=== PATIENT | female | born 1935 | race Caucasian/White ===

== ENCOUNTER 2017-04-27 16:50 | Emergency (ER) | payer MEDICARE, OTHER ==
[~2017-04-27] VITALS: Ht 162.6 cm; Wt 75.0 kg
[~2017-04-27 16:50] MED LIST: AMLO1CAP2 PO; AMLO2.5T2 PO; ASPI-1264 PO; CELE200C PO; ESOM40CA30 PO; HYDR-565 PO; IPRA4AER IH; SERT50TA PO
[2017-04-27 17:46] LABS: BASOPHILS % (AUTO) 0.2 % (0-1); EOSINOPHILS # (AUTO) 0.1 X10'3 (0-0.9); EOSINOPHILS % (AUTO) 1.4 % (0-6); HEMATOCRIT 38.3 % (35.0-45.0); LYMPHOCYTES # (AUTO) 1.7 X10'3 (1.1-4.8); LYMPHOCYTES % (AUTO) 17.4 % (21-51); MEAN CORPUSCULAR HEMOGLOBIN 33.1 PG (27.0-31.0); MEAN CORPUSCULAR VOLUME 97.3 FL (78-98); MEAN PLATELET VOLUME 9.3 FL (7.4-10.4); MONOCYTES # (AUTO) 0.7 X10'3 (0-0.9); MONOCYTES % (AUTO) 7.7 % (2-12); NEUTROPHILS # (AUTO) 7.1 X10'3 (1.8-7.7); NEUTROPHILS % (AUTO) 73.3 % (42-75); PLATELET COUNT 189 X10'3 (140-440); RED BLOOD COUNT 3.94 X10'6 (4.20-5.60); RED CELL DISTRIBUTION WIDTH 14.1 % (11.5-14.5); WHITE BLOOD COUNT 9.7 X10'3 (4.5-11.0)
[2017-04-27 18:04] LABS: ALANINE AMINOTRANSFERASE 27 U/L (12-78); ALBUMIN 3.6 G/DL (3.4-5.0); ALBUMIN/GLOBULIN RATIO 0.9 (1.1-1.5); ALKALINE PHOSPHATASE 69 IU/L (46-116); ANION GAP 8 (8-16); ASPARTATE AMINO TRANSFERASE 20 U/L (10-37); BILIRUBIN,TOTAL 0.4 MG/DL (0.1-1.0); BLOOD UREA NITROGEN 12 MG/DL (7-18); BUN/CREATININE RATIO 12.5 (6.6-38.0); CALCIUM 8.8 MG/DL (8.5-10.1); CHLORIDE 105 MMOL/L (99-107); CREATININE 0.96 MG/DL (0.40-0.90); GLUCOSE 194 MG/DL (70-104); POTASSIUM 3.4 MMOL/L (3.5-5.1); SODIUM 143 MMOL/L (135-145); TOTAL CARBON DIOXIDE 29.7 MMOL/L (24-32); TOTAL PROTEIN 7.4 G/DL (6.4-8.2); eGFR 56 ML/MIN
[2017-04-27 18:39] VITALS: BP 135/65
== END 2017-04-27 18:40 | disposition home or self-care (01) ==
LOC: ER 16:50
DX: R42 Dizziness and giddiness (principal); I10 Essential (primary) hypertension; J44.9 Chronic obstructive pulmonary disease, unspecified; G89.29 Other chronic pain; Z90.49 Acquired absence of other specified parts of digestive tract; Z88.5 Allergy status to narcotic agent; Z79.82 Long term (current) use of aspirin
CPT/HCPCS: 36415; 71045; 80053; 85025; 93005; 99285

== ENCOUNTER 2017-05-08 12:54 | Inpatient (IN) | payer MEDICARE, OTHER ==
[~2017-05-08] VITALS: Ht 162.6 cm; Wt 77.3 kg
[2017-05-08] MEDS ORDERED: methylPREDNISolone sod succ 125mg/2ml vial IV ONE (13:05)
[2017-05-08] MEDS ORDERED: levoFLOXACIN-Levaquin 750MG/D5 150 ML IV ONE (13:05)
[2017-05-08] MEDS ORDERED: ipratropium/albuterol 3ml nebule NEB ONE (13:05)
[2017-05-08] MEDS ORDERED: normal saline 1000ML IV soln IVB ONE ×2 (13:05→16:35)
[2017-05-08] MEDS ORDERED: magnesium 2GM in 50ml NS 50 ML IV ONE (13:05)
[2017-05-08] MEDS ORDERED: benzonatate 100mg capsule PO ONE (13:10)
[2017-05-08 13:37] LABS: BASOPHILS % (AUTO) 0.2 % (0-1); EOSINOPHILS # (AUTO) 0.2 X10'3 (0-0.9); EOSINOPHILS % (AUTO) 3.6 % (0-6); HEMATOCRIT 36.3 % (35.0-45.0); HEMOGLOBIN 12.4 g/dl (12.0-16.0); LYMPHOCYTES # (AUTO) 1.5 X10'3 (1.1-4.8); MEAN CORPUSCULAR HEMOGLOBIN 33.6 PG (27.0-31.0); MEAN CORPUSCULAR HGB CONC 34.1 % (33.0-36.5); MEAN CORPUSCULAR VOLUME 98.5 FL (78-98); MEAN PLATELET VOLUME 8.6 FL (7.4-10.4); MONOCYTES # (AUTO) 0.7 X10'3 (0-0.9); MONOCYTES % (AUTO) 11.4 % (2-12); NEUTROPHILS # (AUTO) 3.5 X10'3 (1.8-7.7); NEUTROPHILS % (AUTO) 58.8 % (42-75); PLATELET COUNT 162 X10'3 (140-440); RED BLOOD COUNT 3.68 X10'6 (4.20-5.60); RED CELL DISTRIBUTION WIDTH 14.8 % (11.5-14.5); WHITE BLOOD COUNT 5.9 X10'3 (4.5-11.0)
[2017-05-08 13:53] LABS: INR 1.1 INR; PARTIAL THROMBOPLASTIN TIME 27 SECONDS (22-32); PROTHROMBIN TIME 11.5 SECONDS (9.0-12.0)
[2017-05-08 14:05] LABS: ALANINE AMINOTRANSFERASE 23 U/L (12-78); ALBUMIN 3.3 G/DL (3.4-5.0); ALBUMIN/GLOBULIN RATIO 0.8 (1.1-1.5); ALKALINE PHOSPHATASE 60 IU/L (46-116); ANION GAP 10 (8-16); ASPARTATE AMINO TRANSFERASE 19 U/L (10-37); BILIRUBIN,TOTAL 0.5 MG/DL (0.1-1.0); BLOOD UREA NITROGEN 11 MG/DL (7-18); BUN/CREATININE RATIO 12.2 (6.6-38.0); CALCIUM 8.6 MG/DL (8.5-10.1); CHLORIDE 104 MMOL/L (99-107); GLUCOSE 185 MG/DL (70-104); POTASSIUM 3.6 MMOL/L (3.5-5.1); SODIUM 143 MMOL/L (135-145); TOTAL CARBON DIOXIDE 28.9 MMOL/L (24-32); TOTAL PROTEIN 7.3 G/DL (6.4-8.2); eGFR 60 ML/MIN
[2017-05-08] MEDS ORDERED: albuterol 2.5 MG/3 ML nebule NEB ONE (14:25)
[2017-05-08] MEDS ORDERED: ATOR40TA PO (15:12)
[2017-05-08 16:01] LABS: CLARITY,URINE CLEAR (Clear); COLOR,URINE STRAW (Yellow); GLUCOSE, URINE NEGATIVE (Neg); KETONES,URINE NEGATIVE (Neg); LEUKOCYTE ESTERASE ,URINE NEGATIVE (Neg); NITRITES, URINE NEGATIVE (Neg); OCCULT BLOOD,URINE NEGATIVE (Neg); PH,URINE 5.5 (4.8-8.0); PROTEIN,URINE NEGATIVE (Neg); UROBILINOGEN,URINE 0.2 E.U/dL (0.2-1.0)
[2017-05-08 16:02] LABS: UA COLLECTION TYPE CLN CATCH MIDSTREAM
[2017-05-08] MEDS: sertraline 50mg tablet PO SCH (21:51)
[2017-05-08] MEDS ORDERED: HYDROcodone/acetaminophen 10/325mg tab PO PRN (22:20)
[2017-05-08] MEDS: HYDROcodone/acetaminophen 5mg/325mg tablet PO PRN ×2 (22:36→23:30)
[2017-05-09] MEDS ORDERED: benzonatate 100mg capsule PO ONE ×2 (01:30→12:30)
[2017-05-09] MEDS ORDERED: methylPREDNISolone sod succ 125mg/2ml vial IV ONE (01:30)
[2017-05-09] MEDS: lisinopril 20mg tablet PO SCH (07:42)
[2017-05-09] MEDS: atorvastatin 20mg tablet PO SCH (07:42)
[2017-05-09] MEDS: pantoprazole 40mg Tablet.DR PO SCH (07:43)
[2017-05-09] MEDS: amLODIPine 5mg tablet PO SCH (07:44)
[2017-05-09] MEDS: celeCOXIB 100mg capsule PO SCH (07:44)
[2017-05-09] MEDS ORDERED: BENAZEPRIL PO SCH (08:00)
[2017-05-09] MEDS ORDERED: amLODIPine 2.5mg tablet PO SCH (08:00)
[2017-05-09] MEDS ORDERED: AMLODIPINE BESYLATE PO SCH (08:00)
[2017-05-09] MEDS ORDERED: magnesium hydroxide 30ml (MOM) UD suspension PO PRN (08:10)
[2017-05-09] MEDS ORDERED: mag hydrox/Alum hydrox/simeth 30ml oral suspension PO PRN (08:10)
[2017-05-09] MEDS ORDERED: acetaminophen 325mg tablet PO PRN (08:10)
[2017-05-09] MEDS ORDERED: magnesium 2GM in 50ml NS 50 ML IV PRN (08:10)
[2017-05-09] MEDS ORDERED: HYDROcodone/acetaminophen 5mg/325mg tablet PO PRN (08:10)
[2017-05-09] MEDS ORDERED: potassium Cl 40MEQ/NS 500ml 500 ML IV PRN ×2 (08:10)
[2017-05-09] MEDS ORDERED: magnesium 4gm in 100ml NS 100 ML IV PRN (08:10)
[2017-05-09] MEDS ORDERED: LORazepam 0.5 MG tablet PO PRN (08:10)
[2017-05-09] MEDS ORDERED: potassium Cl 20 mEq SR tablet PO PRN ×2 (08:10)
[2017-05-09] MEDS ORDERED: magnesium Cl slow-release 64mg tablet PO PRN (08:10)
[2017-05-09] MEDS ORDERED: ondansetron/PF 4mg/2ml inj IV PRN (08:10)
[2017-05-09] MEDS ORDERED: morphine 4 MG/ML inj SYRINge IV PRN (08:10)
[2017-05-09] MEDS: HYDROcodone/acetaminophen 10/325mg tab PO PRN ×2 (09:58→18:57)
[2017-05-09] MEDS ORDERED: enoxaparin 40mg/0.4ml syringe SQ ONE (10:00)
[2017-05-09] MEDS: albuterol 2.5 MG/3 ML nebule NEB PRN (10:19)
[2017-05-09] MEDS: methylPREDNISolone sod succ/PF 40mg inj. IV SCH ×2 (14:10→19:21)
[2017-05-09 16:03] VITALS: BP 109/61
[2017-05-09 19:00] VITALS: BP 114/64
[2017-05-09] MEDS: sertraline 50mg tablet PO SCH (20:16)
[2017-05-10] VITALS: BP 125/68
[2017-05-10] MEDS: methylPREDNISolone sod succ/PF 40mg inj. IV SCH ×4 (01:29→19:30)
[2017-05-10 05:30] LABS: BASOPHILS % (AUTO) 0.2 % (0-1); EOSINOPHILS # (AUTO) 0.2 X10'3 (0-0.9); EOSINOPHILS % (AUTO) 1.4 % (0-6); HEMATOCRIT 35.2 % (35.0-45.0); HEMOGLOBIN 12.1 g/dl (12.0-16.0); LYMPHOCYTES # (AUTO) 1.1 X10'3 (1.1-4.8); LYMPHOCYTES % (AUTO) 9.9 % (21-51); MEAN CORPUSCULAR HEMOGLOBIN 33.8 PG (27.0-31.0); MEAN CORPUSCULAR HGB CONC 34.3 % (33.0-36.5); MEAN CORPUSCULAR VOLUME 98.7 FL (78-98); MEAN PLATELET VOLUME 8.7 FL (7.4-10.4); MONOCYTES # (AUTO) 0.3 X10'3 (0-0.9); MONOCYTES % (AUTO) 3.1 % (2-12); NEUTROPHILS # (AUTO) 9.2 X10'3 (1.8-7.7); NEUTROPHILS % (AUTO) 85.4 % (42-75); PLATELET COUNT 157 X10'3 (140-440); RED BLOOD COUNT 3.56 X10'6 (4.20-5.60); RED CELL DISTRIBUTION WIDTH 14.6 % (11.5-14.5); WHITE BLOOD COUNT 10.7 X10'3 (4.5-11.0)
[2017-05-10 06:53] LABS: ALBUMIN 3.1 G/DL (3.4-5.0); ANION GAP 8 (8-16); BLOOD UREA NITROGEN 14 MG/DL (7-18); BUN/CREATININE RATIO 19.7 (6.6-38.0); CALCIUM 8.5 MG/DL (8.5-10.1); CHLORIDE 104 MMOL/L (99-107); CREATININE 0.71 MG/DL (0.40-0.90); GLUCOSE 197 MG/DL (70-104); MAGNESIUM 2.2 MG/DL (1.5-2.4); POTASSIUM 3.8 MMOL/L (3.5-5.1); SODIUM 142 MMOL/L (135-145); TOTAL CARBON DIOXIDE 29.9 MMOL/L (24-32); eGFR 79 ML/MIN
[2017-05-10 07:02] VITALS: BP 131/61
[2017-05-10] MEDS: K and/or MAG REPLACEMENT MC SCH (07:21)
[2017-05-10] MEDS: enoxaparin 40mg/0.4ml syringe SUBCUT SCH (07:41)
[2017-05-10] MEDS: lisinopril 20mg tablet PO SCH (07:43)
[2017-05-10] MEDS: amLODIPine 5mg tablet PO SCH (07:43)
[2017-05-10] MEDS: pantoprazole 40mg Tablet.DR PO SCH (07:43)
[2017-05-10] MEDS: celeCOXIB 100mg capsule PO SCH (07:43)
[2017-05-10] MEDS: atorvastatin 20mg tablet PO SCH (07:48)
[2017-05-10] MEDS: HYDROcodone/acetaminophen 10/325mg tab PO PRN ×2 (10:45→17:05)
[2017-05-10 11:02] VITALS: BP 137/79
[2017-05-10] MEDS: albuterol 2.5 MG/3 ML nebule NEB PRN ×2 (12:52→20:34)
[2017-05-10 20:00] VITALS: BP 126/68
[2017-05-10] MEDS: sertraline 50mg tablet PO SCH (21:31)
[2017-05-10] MEDS: benzonatate 100mg capsule PO PRN (21:32)
[2017-05-11] VITALS: BP 137/89
[2017-05-11] MEDS: methylPREDNISolone sod succ/PF 40mg inj. IV SCH ×4 (02:12→19:29)
[2017-05-11 04:16] LABS: BASOPHILS % (AUTO) 0 % (0-1); EOSINOPHILS # (AUTO) 0.2 X10'3 (0-0.9); EOSINOPHILS % (AUTO) 1.5 % (0-6); HEMATOCRIT 35.6 % (35.0-45.0); HEMOGLOBIN 12.1 g/dl (12.0-16.0); LYMPHOCYTES # (AUTO) 0.8 X10'3 (1.1-4.8); LYMPHOCYTES % (AUTO) 7.9 % (21-51); MEAN CORPUSCULAR HEMOGLOBIN 33.6 PG (27.0-31.0); MEAN CORPUSCULAR HGB CONC 33.9 % (33.0-36.5); MEAN CORPUSCULAR VOLUME 99.2 FL (78-98); MEAN PLATELET VOLUME 8.8 FL (7.4-10.4); MONOCYTES # (AUTO) 0.3 X10'3 (0-0.9); MONOCYTES % (AUTO) 2.8 % (2-12); NEUTROPHILS # (AUTO) 8.7 X10'3 (1.8-7.7); NEUTROPHILS % (AUTO) 87.8 % (42-75); PLATELET COUNT 167 X10'3 (140-440); RED BLOOD COUNT 3.59 X10'6 (4.20-5.60); RED CELL DISTRIBUTION WIDTH 14.2 % (11.5-14.5); WHITE BLOOD COUNT 9.9 X10'3 (4.5-11.0)
[2017-05-11 04:38] LABS: ALBUMIN 3.3 G/DL (3.4-5.0); ANION GAP 6 (8-16); BLOOD UREA NITROGEN 14 MG/DL (7-18); BUN/CREATININE RATIO 16.5 (6.6-38.0); CALCIUM 8.6 MG/DL (8.5-10.1); CHLORIDE 103 MMOL/L (99-107); CREATININE 0.85 MG/DL (0.40-0.90); GLUCOSE 241 MG/DL (70-104); MAGNESIUM 2.3 MG/DL (1.5-2.4); POTASSIUM 3.7 MMOL/L (3.5-5.1); SODIUM 143 MMOL/L (135-145); TOTAL CARBON DIOXIDE 33.7 MMOL/L (24-32); eGFR 64 ML/MIN
[2017-05-11 08:00] VITALS: BP 136/77
[2017-05-11] MEDS: K and/or MAG REPLACEMENT MC SCH (08:00)
[2017-05-11] MEDS: levoFLOXACIN-Levaquin 500mg/D5 100 ML IV SCH (09:07)
[2017-05-11] MEDS: lisinopril 20mg tablet PO SCH (09:08)
[2017-05-11] MEDS: amLODIPine 5mg tablet PO SCH (09:08)
[2017-05-11] MEDS: pantoprazole 40mg Tablet.DR PO SCH (09:08)
[2017-05-11] MEDS: HYDROcodone/acetaminophen 10/325mg tab PO PRN ×2 (09:08→16:15)
[2017-05-11] MEDS: benzonatate 100mg capsule PO PRN ×2 (09:08→17:05)
[2017-05-11] MEDS: atorvastatin 20mg tablet PO SCH (09:09)
[2017-05-11] MEDS: celeCOXIB 100mg capsule PO SCH (09:09)
[2017-05-11] MEDS: enoxaparin 40mg/0.4ml syringe SUBCUT SCH (09:10)
[2017-05-11 11:00] VITALS: BP 131/69
[2017-05-11] MEDS: lactobacillus rhamnosus 10,000 MMU CELLS/CAPSULE PO SCH (19:29)
[2017-05-11 20:00] VITALS: BP 132/71
[2017-05-11] MEDS: sertraline 50mg tablet PO SCH (20:17)
[2017-05-12] VITALS: BP 137/78
[2017-05-12] MEDS: methylPREDNISolone sod succ/PF 40mg inj. IV SCH ×3 (01:51→14:52)
[2017-05-12 06:02] LABS: BASOPHILS % (AUTO) 0.1 % (0-1); EOSINOPHILS # (AUTO) 0.1 X10'3 (0-0.9); EOSINOPHILS % (AUTO) 1.5 % (0-6); HEMATOCRIT 38.9 % (35.0-45.0); HEMOGLOBIN 13.3 g/dl (12.0-16.0); LYMPHOCYTES # (AUTO) 0.8 X10'3 (1.1-4.8); LYMPHOCYTES % (AUTO) 10.1 % (21-51); MEAN CORPUSCULAR HEMOGLOBIN 33.2 PG (27.0-31.0); MEAN CORPUSCULAR HGB CONC 34.1 % (33.0-36.5); MEAN CORPUSCULAR VOLUME 97.4 FL (78-98); MEAN PLATELET VOLUME 8.7 FL (7.4-10.4); MONOCYTES # (AUTO) 0.4 X10'3 (0-0.9); MONOCYTES % (AUTO) 4.3 % (2-12); PLATELET COUNT 172 X10'3 (140-440); RED CELL DISTRIBUTION WIDTH 13.6 % (11.5-14.5); WHITE BLOOD COUNT 8.4 X10'3 (4.5-11.0)
[2017-05-12 06:15] LABS: ALBUMIN 3.2 G/DL (3.4-5.0); ANION GAP 6 (8-16); BLOOD UREA NITROGEN 17 MG/DL (7-18); BUN/CREATININE RATIO 23.9 (6.6-38.0); CALCIUM 8.7 MG/DL (8.5-10.1); CHLORIDE 99 MMOL/L (99-107); CREATININE 0.71 MG/DL (0.40-0.90); GLUCOSE 222 MG/DL (70-104); MAGNESIUM 2.4 MG/DL (1.5-2.4); POTASSIUM 3.2 MMOL/L (3.5-5.1); SODIUM 139 MMOL/L (135-145); TOTAL CARBON DIOXIDE 34.1 MMOL/L (24-32); eGFR 79 ML/MIN
[2017-05-12 07:15] VITALS: BP 157/76
[2017-05-12] MEDS: levoFLOXACIN-Levaquin 500mg/D5 100 ML IV SCH (07:28)
[2017-05-12] MEDS: amLODIPine 5mg tablet PO SCH (07:29)
[2017-05-12] MEDS: lactobacillus rhamnosus 10,000 MMU CELLS/CAPSULE PO SCH (07:29)
[2017-05-12] MEDS: enoxaparin 40mg/0.4ml syringe SUBCUT SCH (07:29)
[2017-05-12] MEDS: atorvastatin 20mg tablet PO SCH (07:29)
[2017-05-12] MEDS: pantoprazole 40mg Tablet.DR PO SCH (07:29)
[2017-05-12] MEDS: benzonatate 100mg capsule PO PRN (07:30)
[2017-05-12] MEDS: HYDROcodone/acetaminophen 10/325mg tab PO PRN (07:30)
[2017-05-12] MEDS: celeCOXIB 100mg capsule PO SCH (07:30)
[2017-05-12] MEDS: lisinopril 20mg tablet PO SCH (07:30)
[2017-05-12] MEDS: K and/or MAG REPLACEMENT MC SCH (08:00)
[2017-05-12] MEDS ORDERED: LIDOcaine 1% 30ml vial 5 ML in potassium Cl 40MEQ/NS 500ml 500 ML IV PRN (08:05)
[2017-05-12 11:00] VITALS: BP 118/67
[2017-05-12] MEDS ORDERED: LEVO500T2 PO (14:01)
[2017-05-12] MEDS ORDERED: BENZ-16 PO (14:01)
[2017-05-12] MEDS ORDERED: POTA20PA3 PO (14:07)
[2017-05-12] MEDS ORDERED: PRED10TA23 PO (14:40)
== END 2017-05-12 16:03 | disposition home health service (06) | DRG 189 ==
LOC: ER 12:55 → ED HOLD 05-09 08:10 → MED 3N 05-09 15:37
PROVIDERS: ADMIT Internal Medicine; ATTEND Internal Medicine
DX: J96.21 Acute and chronic respiratory failure with hypoxia (principal); J44.1 Chronic obstructive pulmonary disease with (acute) exacerbation; Z99.81 Dependence on supplemental oxygen; J45.901 Unspecified asthma with (acute) exacerbation; E66.9 Obesity, unspecified; E78.5 Hyperlipidemia, unspecified; E87.6 Hypokalemia; F32.9 Major depressive disorder, single episode, unspecified; F41.9 Anxiety disorder, unspecified; I10 Essential (primary) hypertension; G89.29 Other chronic pain; Z90.49 Acquired absence of other specified parts of digestive tract; Z88.5 Allergy status to narcotic agent; Z91.041 Radiographic dye allergy status; Z79.899 Other long term (current) drug therapy; Z68.29 Body mass index [BMI] 29.0-29.9, adult
CPT/HCPCS: 36415; 71045; 80048; 80053; 81003; 83605; 83735; 83880; 84145; 84484; 85025; 85610; 85730; 87040; 87070; 87502; 87503; 94640; 94760; 96361; 96365; 96368; 96375; 96376; 99285; J1650; J1956; J2270; J2920; J2930; J3475; J3480; J3490; J7030

== ENCOUNTER 2018-11-10 12:08 | Inpatient (IN) | payer MEDICARE, OTHER ==
[~2018-11-10] VITALS: Ht 160 cm; Wt 79.0 kg
[~2018-11-10 12:08] MED LIST changes: -AMLO2.5T2 PO; -ASPI-1264 PO; +ATOR40TA PO; +BENZ-16 PO; -ESOM40CA30 PO; +ESOM40CA49 PO; +HYDR-4353 PO; -HYDR-565 PO; -IPRA4AER IH; +POTA20PA40 PO
[2018-11-10 13:13] LABS: BASOPHILS # (AUTO) 0.1 X10'3 (0-0.2); BASOPHILS % (AUTO) 0.5 % (0-1); EOSINOPHILS # (AUTO) 0.1 X10'3 (0-0.9); EOSINOPHILS % (AUTO) 1.3 % (0-6); HEMATOCRIT 37.8 % (35.0-45.0); HEMOGLOBIN 12.6 g/dl (12.0-16.0); LYMPHOCYTES # (AUTO) 2.9 X10'3 (1.1-4.8); LYMPHOCYTES % (AUTO) 27.8 % (21-51); MEAN CORPUSCULAR HEMOGLOBIN 33.3 PG (27.0-31.0); MEAN CORPUSCULAR HGB CONC 33.3 g/dL (33.0-36.5); MEAN CORPUSCULAR VOLUME 99.9 FL (78-98); MEAN PLATELET VOLUME 9.4 FL (7.4-10.4); MONOCYTES % (AUTO) 9.5 % (2-12); NEUTROPHILS # (AUTO) 6.4 X10'3 (1.8-7.7); NEUTROPHILS % (AUTO) 60.9 % (42-75); PLATELET COUNT 197 X10'3 (140-440); RED BLOOD COUNT 3.78 X10'6 (4.20-5.60); RED CELL DISTRIBUTION WIDTH 14.1 % (11.5-14.5); WHITE BLOOD COUNT 10.6 X10'3 (4.5-11.0)
[2018-11-10 13:28] LABS: PARTIAL THROMBOPLASTIN TIME 27 SECONDS (22-32)
[2018-11-10 13:35] LABS: ALANINE AMINOTRANSFERASE 26 U/L (12-78); ALBUMIN 3.6 G/DL (3.4-5.0); ALBUMIN/GLOBULIN RATIO 0.8 (1.1-1.5); ALKALINE PHOSPHATASE 54 IU/L (46-116); ANION GAP 9 (8-16); ASPARTATE AMINO TRANSFERASE 18 U/L (10-37); BILIRUBIN,TOTAL 0.4 MG/DL (0.1-1.0); BLOOD UREA NITROGEN 17 MG/DL (7-18); BUN/CREATININE RATIO 15.7 (6.6-38.0); CALCIUM 9.1 MG/DL (8.5-10.1); CHLORIDE 103 MMOL/L (99-107); CREATININE 1.08 MG/DL (0.40-0.90); GLUCOSE 130 MG/DL (70-104); POTASSIUM 4.2 MMOL/L (3.5-5.1); SODIUM 139 MMOL/L (135-145); TOTAL CARBON DIOXIDE 27.1 MMOL/L (24-32); TOTAL PROTEIN 8.1 G/DL (6.4-8.2); eGFR 48 ML/MIN
[2018-11-10] MEDS ORDERED: CefTRIAXone/D5W-Rocephin 1gm 50 ML IV ONE (14:45)
[2018-11-10] MEDS ORDERED: azithromycin/NS 500mg/250ml 250 ML IV ONE (14:45)
[2018-11-10] MEDS ORDERED: MULT-933 PO (15:43)
[2018-11-10] MEDS ORDERED: BENZ-49 PO (15:43)
[2018-11-10] MEDS ORDERED: potassium CL 10mEq/100ml bag 100 ML IV PRN ×2 (17:05)
[2018-11-10] MEDS ORDERED: magnesium Cl slow-release 64mg tablet PO PRN (17:05)
[2018-11-10] MEDS ORDERED: acetaminophen 325mg tablet PO PRN ×2 (17:05)
[2018-11-10] MEDS ORDERED: magnesium hydroxide 30ml (MOM) UD suspension PO PRN (17:05)
[2018-11-10] MEDS ORDERED: mag hydrox/Alum hydrox/simeth 30ml oral suspension PO PRN (17:05)
[2018-11-10] MEDS ORDERED: ondansetron/PF 4mg/2ml inj IV PRN (17:05)
[2018-11-10] MEDS ORDERED: magnesium 4gm in 100ml NS 100 ML IV PRN (17:05)
[2018-11-10] MEDS ORDERED: ipratropium/albuterol 3ml nebule NEB PRN (17:05)
[2018-11-10] MEDS ORDERED: potassium Cl 20 mEq SR tablet PO PRN ×2 (17:05)
[2018-11-10] MEDS ORDERED: magnesium 2GM in 50ml NS 50 ML IV PRN (17:05)
[2018-11-10 17:58] LABS: PHOSPHORUS 3.4 MG/DL (2.3-4.5)
[2018-11-10] MEDS: normal saline 1000ml 1,000 ML IV SCH ×2 (18:02→21:03)
[2018-11-10] MEDS: ipratropium/albuterol 3ml nebule NEB SCH ×2 (18:53→23:00)
--- NOTE | 2018-11-10 19:00 | NUR ---
Pt. report recieved fron ER nurse RICARDO Landa
--- NOTE | 2018-11-10 19:01 | NUR ---
Report given to RICARDO Orozco
[2018-11-10] MEDS: HYDROcodone/acetaminophen 10/325mg tab PO PRN (19:21)
[2018-11-10 19:30] VITALS: BP 123/63
[2018-11-10 21:00] VITALS: BP 113/59
[2018-11-10] MEDS: sertraline 50mg tablet PO SCH (21:00)
[2018-11-10] MEDS ORDERED: temazepam 15mg capsule PO PRN (21:00)
--- NOTE | 2018-11-10 23:48 | NUR ---
reviewed and agree with SRN assessment.
[2018-11-11] VITALS (7 sets, daily range): BP systolic 96–162; BP diastolic 41–58
[2018-11-11 00:53] LABS: BASOPHILS % (AUTO) 0.4 % (0-1); EOSINOPHILS # (AUTO) 0.1 X10'3 (0-0.9); EOSINOPHILS % (AUTO) 1.5 % (0-6); HEMATOCRIT 32.8 % (35.0-45.0); HEMOGLOBIN 11.2 g/dl (12.0-16.0); LYMPHOCYTES # (AUTO) 2.5 X10'3 (1.1-4.8); LYMPHOCYTES % (AUTO) 27.5 % (21-51); MEAN CORPUSCULAR HEMOGLOBIN 33.6 PG (27.0-31.0); MEAN CORPUSCULAR HGB CONC 34.1 g/dL (33.0-36.5); MEAN CORPUSCULAR VOLUME 98.7 FL (78-98); MEAN PLATELET VOLUME 9.5 FL (7.4-10.4); MONOCYTES # (AUTO) 1.1 X10'3 (0-0.9); MONOCYTES % (AUTO) 11.8 % (2-12); NEUTROPHILS # (AUTO) 5.4 X10'3 (1.8-7.7); NEUTROPHILS % (AUTO) 58.8 % (42-75); PLATELET COUNT 170 X10'3 (140-440); RED BLOOD COUNT 3.33 X10'6 (4.20-5.60); WHITE BLOOD COUNT 9.2 X10'3 (4.5-11.0)
[2018-11-11 01:06] LABS: ALANINE AMINOTRANSFERASE 21 U/L (12-78); ALBUMIN 2.9 G/DL (3.4-5.0); ALBUMIN/GLOBULIN RATIO 0.7 (1.1-1.5); ALKALINE PHOSPHATASE 45 IU/L (46-116); ANION GAP 5 (8-16); ASPARTATE AMINO TRANSFERASE 15 U/L (10-37); BILIRUBIN,TOTAL 0.4 MG/DL (0.1-1.0); BLOOD UREA NITROGEN 15 MG/DL (7-18); CALCIUM 8.4 MG/DL (8.5-10.1); CHLORIDE 106 MMOL/L (99-107); CREATININE 0.88 MG/DL (0.40-0.90); GLUCOSE 115 MG/DL (70-104); SODIUM 141 MMOL/L (135-145); TOTAL CARBON DIOXIDE 29.6 MMOL/L (24-32); TOTAL PROTEIN 6.8 G/DL (6.4-8.2); eGFR 61 ML/MIN
[2018-11-11 01:10] LABS: PHOSPHORUS 3.1 MG/DL (2.3-4.5)
[2018-11-11] MEDS: HYDROcodone/acetaminophen 10/325mg tab PO PRN ×4 (02:12→13:20)
--- NOTE | 2018-11-11 06:14 | NUR ---
Problems reprioritized. Patient report given, questions answered & plan of care reviewed with RICARDO Fisher.
--- NOTE | 2018-11-11 06:54 | NUR ---
Patient in room [facility] 4006. I have received report from Pam SILVA and had the opportunity to ask questions and assume patient care.
[2018-11-11] MEDS: CefTRIAXone/D5W-Rocephin 1gm 50 ML IV SCH (07:29)
[2018-11-11] MEDS: normal saline 1000ml 1,000 ML IV SCH ×2 (07:29→19:51)
[2018-11-11] MEDS: amLODIPine 5mg tablet PO SCH (07:30)
[2018-11-11] MEDS: lisinopril 20mg tablet PO SCH (07:31)
[2018-11-11] MEDS: celeCOXIB 100mg capsule PO SCH (07:32)
[2018-11-11] MEDS: pantoprazole 40mg Tablet.DR PO SCH (07:32)
[2018-11-11] MEDS: atorvastatin 20mg tablet PO SCH (07:32)
[2018-11-11] MEDS: K and/or MAG REPLACEMENT MC SCH (07:33)
[2018-11-11] MEDS: ipratropium/albuterol 3ml nebule NEB SCH ×5 (07:47→23:00)
[2018-11-11] MEDS ORDERED: non-formulary drug (Celecoxib (Celebrex) 1 CAP) PO SCH (08:00)
[2018-11-11] MEDS ORDERED: AMLODIPINE BESYLATE PO SCH (08:00)
[2018-11-11] MEDS ORDERED: non-formulary drug (Atorvastatin Calcium* (Lipitor*) 1 TAB) PO SCH (08:00)
[2018-11-11] MEDS ORDERED: enoxaparin 40mg/0.4ml syringe SQ SCH (08:00)
[2018-11-11] MEDS ORDERED: BENAZEPRIL PO SCH (08:00)
[2018-11-11] MEDS ORDERED: non-formulary drug (Esomeprazole Magnesium (Nexium) 1 CAP) PO SCH (08:00)
[2018-11-11] MEDS: azithromycin/NS 500mg/250ml 250 ML IV SCH (08:58)
[2018-11-11] MEDS: ketorolac tromethamine 15mg/ml inj. IV PRN ×2 (08:59→16:15)
[2018-11-11 12:07] LABS: BFSOURCE RIGHT PLEURAL FLD; PLEURAL FLUID PH 7.192 (7.63-7.65)
[2018-11-11 13:48] LABS: GLUCOSE,BODY FLUID 175 MG/DL; LDH,BODY FLUID 985 U/L; TOTAL PROTEIN,BODY FLUID 6.4 G/DL
[2018-11-11 14:29] LABS: BASOPHILS,BODY FLUID 1 %; BFAPPEAR CLOUDY; EOSINOPHILS,BODY FLUID 3 %; LYMPHOCYTES,BODY FLUID 20 %; MONOCYTES,BODY FLUID 5 %; NEUTROPHILS,BODY FLUID 71 %
[2018-11-11 14:30] LABS: BF MESOTHELIAL CELLS FEW; BF RBC COUNT 10000 /CU MM; BF WBC COUNT 2750 /CU MM (0-1000); BFCOLOR YELLOW; BFVOLUME 30 ML
[2018-11-11] MEDS: HYDROcodone/acetaminophen 5mg/325mg tablet PO PRN (17:20)
--- NOTE | 2018-11-11 18:16 | NUR ---
Problems reprioritized. Patient report given, questions answered & plan of care reviewed with Pam Rodriguez and student Tracie.
[2018-11-11] MEDS: sertraline 50mg tablet PO SCH (19:50)
[2018-11-11] MEDS: lactobacillus rhamnosus 10,000 MMU CELLS/CAPSULE PO SCH (19:50)
[2018-11-12] MEDS: HYDROcodone/acetaminophen 10/325mg tab PO PRN ×4 (00:11→22:23)
--- NOTE | 2018-11-12 02:49 | NUR ---
Reviewed and agree with SRN assessment.
[2018-11-12] MEDS: normal saline 1000ml 1,000 ML IV SCH ×2 (04:25→22:21)
[2018-11-12 06:00] VITALS: BP 111/42
--- NOTE | 2018-11-12 06:28 | NUR ---
Problems reprioritized. Patient report given, questions answered & plan of care reviewed with RICARDO Fisher.
--- NOTE | 2018-11-12 06:44 | NUR ---
Patient in room [facility] 4006. I have received report from Pam SILVA and had the opportunity to ask questions and assume patient care.
[2018-11-12] MEDS: lisinopril 20mg tablet PO SCH (07:04)
[2018-11-12] MEDS: celeCOXIB 100mg capsule PO SCH (07:05)
[2018-11-12] MEDS: amLODIPine 5mg tablet PO SCH (07:05)
[2018-11-12] MEDS: lactobacillus rhamnosus 10,000 MMU CELLS/CAPSULE PO SCH ×2 (07:05→22:22)
[2018-11-12] MEDS: pantoprazole 40mg Tablet.DR PO SCH (07:05)
[2018-11-12] MEDS: ketorolac tromethamine 15mg/ml inj. IV PRN ×2 (07:05→15:30)
[2018-11-12] MEDS: CefTRIAXone/D5W-Rocephin 1gm 50 ML IV SCH (07:06)
[2018-11-12] MEDS: atorvastatin 20mg tablet PO SCH (07:09)
[2018-11-12 07:11] LABS: BASOPHILS % (AUTO) 0.2 % (0-1); EOSINOPHILS # (AUTO) 0.2 X10'3 (0-0.9); EOSINOPHILS % (AUTO) 2.1 % (0-6); HEMATOCRIT 30.6 % (35.0-45.0); HEMOGLOBIN 10.4 g/dl (12.0-16.0); LYMPHOCYTES # (AUTO) 1.4 X10'3 (1.1-4.8); LYMPHOCYTES % (AUTO) 14.5 % (21-51); MEAN CORPUSCULAR HEMOGLOBIN 33.8 PG (27.0-31.0); MEAN CORPUSCULAR HGB CONC 33.9 g/dL (33.0-36.5); MEAN PLATELET VOLUME 9.7 FL (7.4-10.4); MONOCYTES % (AUTO) 10.5 % (2-12); NEUTROPHILS % (AUTO) 72.7 % (42-75); PLATELET COUNT 158 X10'3 (140-440); RED BLOOD COUNT 3.06 X10'6 (4.20-5.60); RED CELL DISTRIBUTION WIDTH 13.7 % (11.5-14.5); WHITE BLOOD COUNT 9.6 X10'3 (4.5-11.0)
[2018-11-12 07:23] LABS: ALANINE AMINOTRANSFERASE 17 U/L (12-78); ALBUMIN 2.8 G/DL (3.4-5.0); ALBUMIN/GLOBULIN RATIO 0.8 (1.1-1.5); ALKALINE PHOSPHATASE 41 IU/L (46-116); ANION GAP 7 (8-16); ASPARTATE AMINO TRANSFERASE 13 U/L (10-37); BILIRUBIN,TOTAL 0.4 MG/DL (0.1-1.0); BLOOD UREA NITROGEN 9 MG/DL (7-18); BUN/CREATININE RATIO 11.3 (6.6-38.0); CALCIUM 7.6 MG/DL (8.5-10.1); CHLORIDE 107 MMOL/L (99-107); GLUCOSE 131 MG/DL (70-104); MAGNESIUM 1.7 MG/DL (1.5-2.4); PHOSPHORUS 2.9 MG/DL (2.3-4.5); POTASSIUM 4.2 MMOL/L (3.5-5.1); SODIUM 140 MMOL/L (135-145); TOTAL CARBON DIOXIDE 25.7 MMOL/L (24-32); TOTAL PROTEIN 6.5 G/DL (6.4-8.2); eGFR 68 ML/MIN
[2018-11-12] MEDS: ipratropium/albuterol 3ml nebule NEB SCH ×5 (07:38→23:28)
[2018-11-12] MEDS: K and/or MAG REPLACEMENT MC SCH (08:25)
[2018-11-12] MEDS: azithromycin/NS 500mg/250ml 250 ML IV SCH (08:28)
[2018-11-12 10:00] VITALS: BP 102/56
--- NOTE | 2018-11-12 10:40 | NUR ---
Phillip 3259 Re: Susie. starting to hear some crackles in lungs. Pt has NS running at 100ml/hr. do you want me to stop NS infusing?
[2018-11-12] MEDS ORDERED: fluconazole-Diflucan 200mg/NS 100 ML IV ONE (15:15)
[2018-11-12 18:00] VITALS: BP 130/55
--- NOTE | 2018-11-12 18:15 | NUR ---
Problems reprioritized. Patient report given, questions answered & plan of care reviewed with Lazara soriano RN.
[2018-11-12 22:00] VITALS: BP 108/46
[2018-11-12] MEDS: sertraline 50mg tablet PO SCH (22:22)
[2018-11-13 06:00] VITALS: BP 107/49
[2018-11-13] MEDS: ipratropium/albuterol 3ml nebule NEB SCH ×5 (07:26→23:00)
[2018-11-13 07:30] LABS: BASOPHILS % (AUTO) 0.3 % (0-1); EOSINOPHILS # (AUTO) 0.2 X10'3 (0-0.9); EOSINOPHILS % (AUTO) 2.8 % (0-6); HEMATOCRIT 29.1 % (35.0-45.0); HEMOGLOBIN 9.9 g/dl (12.0-16.0); LYMPHOCYTES # (AUTO) 0.9 X10'3 (1.1-4.8); LYMPHOCYTES % (AUTO) 13.6 % (21-51); MEAN CORPUSCULAR HEMOGLOBIN 33.9 PG (27.0-31.0); MEAN CORPUSCULAR HGB CONC 33.9 g/dL (33.0-36.5); MEAN CORPUSCULAR VOLUME 99.8 FL (78-98); MEAN PLATELET VOLUME 8.9 FL (7.4-10.4); MONOCYTES # (AUTO) 0.8 X10'3 (0-0.9); MONOCYTES % (AUTO) 12.6 % (2-12); NEUTROPHILS # (AUTO) 4.6 X10'3 (1.8-7.7); NEUTROPHILS % (AUTO) 70.7 % (42-75); PLATELET COUNT 158 X10'3 (140-440); RED BLOOD COUNT 2.92 X10'6 (4.20-5.60); RED CELL DISTRIBUTION WIDTH 13.7 % (11.5-14.5); WHITE BLOOD COUNT 6.5 X10'3 (4.5-11.0)
[2018-11-13] MEDS: lisinopril 20mg tablet PO SCH (07:45)
[2018-11-13] MEDS: amLODIPine 5mg tablet PO SCH (07:45)
[2018-11-13] MEDS: CefTRIAXone/D5W-Rocephin 1gm 50 ML IV SCH (07:46)
[2018-11-13] MEDS: lactobacillus rhamnosus 10,000 MMU CELLS/CAPSULE PO SCH ×2 (07:46→20:09)
[2018-11-13] MEDS: azithromycin 250mg tablet PO SCH (07:46)
[2018-11-13] MEDS: celeCOXIB 100mg capsule PO SCH (07:46)
[2018-11-13] MEDS: atorvastatin 20mg tablet PO SCH (07:46)
[2018-11-13] MEDS: pantoprazole 40mg Tablet.DR PO SCH (07:46)
[2018-11-13] MEDS: fluconazole-Diflucan 100MG/NS 50 ML IV SCH (07:47)
[2018-11-13 07:51] LABS: ALANINE AMINOTRANSFERASE 17 U/L (12-78); ALBUMIN 2.5 G/DL (3.4-5.0); ALBUMIN/GLOBULIN RATIO 0.6 (1.1-1.5); ALKALINE PHOSPHATASE 39 IU/L (46-116); ANION GAP 6 (8-16); ASPARTATE AMINO TRANSFERASE 13 U/L (10-37); BILIRUBIN,TOTAL 0.3 MG/DL (0.1-1.0); BLOOD UREA NITROGEN 5 MG/DL (7-18); BUN/CREATININE RATIO 7.8 (6.6-38.0); CALCIUM 7.9 MG/DL (8.5-10.1); CHLORIDE 111 MMOL/L (99-107); CREATININE 0.64 MG/DL (0.40-0.90); GLUCOSE 128 MG/DL (70-104); PHOSPHORUS 2.6 MG/DL (2.3-4.5); POTASSIUM 4.1 MMOL/L (3.5-5.1); SODIUM 145 MMOL/L (135-145); TOTAL CARBON DIOXIDE 27.6 MMOL/L (24-32); TOTAL PROTEIN 6.5 G/DL (6.4-8.2); eGFR 88 ML/MIN
[2018-11-13] MEDS: K and/or MAG REPLACEMENT MC SCH (08:00)
[2018-11-13] MEDS: HYDROcodone/acetaminophen 10/325mg tab PO PRN ×3 (08:26→20:09)
[2018-11-13] MEDS: normal saline 1000ml 1,000 ML IV SCH (10:58)
[2018-11-13 18:00] VITALS: BP 114/53
[2018-11-13] MEDS: sertraline 50mg tablet PO SCH (20:10)
[2018-11-13 22:00] VITALS: BP 118/63
[2018-11-14] MEDS: normal saline 1000ml 1,000 ML IV SCH ×2 (01:16→15:34)
[2018-11-14] MEDS: HYDROcodone/acetaminophen 10/325mg tab PO PRN ×4 (01:43→22:26)
[2018-11-14 06:00] VITALS: BP 125/64
--- NOTE | 2018-11-14 06:16 | NUR ---
REPORT GIVEN TO RICARDO CLEMENTS.
--- NOTE | 2018-11-14 06:27 | NUR ---
Patient in room [facility] 4006. I have received report from and had the opportunity to ask questions and assume patient care RICARDO Galindo .
[2018-11-14 06:58] LABS: BASOPHILS % (AUTO) 0.3 % (0-1); EOSINOPHILS # (AUTO) 0.3 X10'3 (0-0.9); EOSINOPHILS % (AUTO) 4.4 % (0-6); HEMATOCRIT 28.8 % (35.0-45.0); HEMOGLOBIN 9.8 g/dl (12.0-16.0); LYMPHOCYTES # (AUTO) 1.2 X10'3 (1.1-4.8); LYMPHOCYTES % (AUTO) 19.3 % (21-51); MEAN CORPUSCULAR VOLUME 99.9 FL (78-98); MEAN PLATELET VOLUME 9.2 FL (7.4-10.4); MONOCYTES # (AUTO) 0.7 X10'3 (0-0.9); MONOCYTES % (AUTO) 10.8 % (2-12); NEUTROPHILS % (AUTO) 65.2 % (42-75); PLATELET COUNT 182 X10'3 (140-440); RED BLOOD COUNT 2.88 X10'6 (4.20-5.60); WHITE BLOOD COUNT 6.1 X10'3 (4.5-11.0)
[2018-11-14 07:10] LABS: ALANINE AMINOTRANSFERASE 18 U/L (12-78); ALBUMIN 2.5 G/DL (3.4-5.0); ALBUMIN/GLOBULIN RATIO 0.6 (1.1-1.5); ALKALINE PHOSPHATASE 40 IU/L (46-116); ANION GAP 6 (8-16); ASPARTATE AMINO TRANSFERASE 16 U/L (10-37); BILIRUBIN,TOTAL 0.3 MG/DL (0.1-1.0); BLOOD UREA NITROGEN 5 MG/DL (7-18); BUN/CREATININE RATIO 7.6 (6.6-38.0); CALCIUM 8.2 MG/DL (8.5-10.1); CHLORIDE 110 MMOL/L (99-107); CREATININE 0.66 MG/DL (0.40-0.90); GLUCOSE 120 MG/DL (70-104); PHOSPHORUS 2.9 MG/DL (2.3-4.5); POTASSIUM 3.9 MMOL/L (3.5-5.1); SODIUM 145 MMOL/L (135-145); TOTAL CARBON DIOXIDE 28.9 MMOL/L (24-32); TOTAL PROTEIN 6.6 G/DL (6.4-8.2); eGFR 85 ML/MIN
[2018-11-14] MEDS: celeCOXIB 100mg capsule PO SCH (07:46)
[2018-11-14] MEDS: pantoprazole 40mg Tablet.DR PO SCH (07:46)
[2018-11-14] MEDS: azithromycin 250mg tablet PO SCH (07:46)
[2018-11-14] MEDS: lactobacillus rhamnosus 10,000 MMU CELLS/CAPSULE PO SCH ×2 (07:46→20:18)
[2018-11-14] MEDS: lisinopril 20mg tablet PO SCH (07:47)
[2018-11-14] MEDS: amLODIPine 5mg tablet PO SCH (07:47)
[2018-11-14] MEDS: atorvastatin 20mg tablet PO SCH (07:47)
[2018-11-14] MEDS: ipratropium/albuterol 3ml nebule NEB SCH ×5 (07:50→23:35)
[2018-11-14] MEDS: CefTRIAXone/D5W-Rocephin 1gm 50 ML IV SCH (08:00)
[2018-11-14] MEDS: fluconazole-Diflucan 100MG/NS 50 ML IV SCH (08:00)
[2018-11-14] MEDS: K and/or MAG REPLACEMENT MC SCH (08:00)
--- NOTE | 2018-11-14 14:53 | NUR ---
Initial: Pt admit w/ R PNA and R pleural effusion s/p thoracentesis -800ml removed. PO 50-75% avg meals. Pt seen by RD for written/verbal high protein ed w/ RD contact information provided. Pt agrees to cottage cheese w/ fruit, banana w/ breakfasts and to have cottage cheese w/ fruit at dinner tonight as well. Dietary notified. LBM 11/12. RASHMI d/w RN regarding MVI per MD approval since pt takes at home and DX. Will continue to monitor. Rec: 1. continue heart healthy diet 2. cottage cheese and fruit and banana w/ breakfasts 3. wt per rx Addendum: 11/14/18 at [address] Amended: Links added.
[2018-11-14 18:00] VITALS: BP 161/73
--- NOTE | 2018-11-14 18:15 | NUR ---
Problems reprioritized. Patient report given, questions answered & plan of care reviewed with RICARDO Galindo.
[2018-11-14] MEDS: cefepime 2g/NS 100ml ADVANTAGE 100 ML IV SCH (20:18)
[2018-11-14] MEDS: sertraline 50mg tablet PO SCH (20:18)
--- NOTE | 2018-11-14 20:50 | NUR ---
PT REPORTED 10/10 PAIN ON VS SHEET, BUT UPON ASKING, SHE STATES THAT HER PAIN IS 4/10 AND DOES NOT WANT ANY PAIN MEDICATION AT THIS TIME.
[2018-11-14 22:00] VITALS: BP 122/67
[2018-11-15 06:00] VITALS: BP 148/75
--- NOTE | 2018-11-15 06:00 | NUR ---
Patient in room [facility] 4006. I have received report from and had the opportunity to ask questions and assume patient care RICARDO Galindo.
[2018-11-15 06:02] LABS: BASOPHILS % (AUTO) 0.4 % (0-1); EOSINOPHILS # (AUTO) 0.3 X10'3 (0-0.9); EOSINOPHILS % (AUTO) 4.3 % (0-6); HEMATOCRIT 31.5 % (35.0-45.0); HEMOGLOBIN 10.7 g/dl (12.0-16.0); LYMPHOCYTES # (AUTO) 1.4 X10'3 (1.1-4.8); LYMPHOCYTES % (AUTO) 20.6 % (21-51); MEAN CORPUSCULAR HEMOGLOBIN 34.2 PG (27.0-31.0); MEAN CORPUSCULAR HGB CONC 33.9 g/dL (33.0-36.5); MEAN CORPUSCULAR VOLUME 101.1 FL (78-98); MEAN PLATELET VOLUME 9.3 FL (7.4-10.4); MONOCYTES # (AUTO) 0.7 X10'3 (0-0.9); MONOCYTES % (AUTO) 10.2 % (2-12); NEUTROPHILS # (AUTO) 4.4 X10'3 (1.8-7.7); NEUTROPHILS % (AUTO) 64.5 % (42-75); PLATELET COUNT 227 X10'3 (140-440); RED BLOOD COUNT 3.12 X10'6 (4.20-5.60); RED CELL DISTRIBUTION WIDTH 14.1 % (11.5-14.5); WHITE BLOOD COUNT 6.8 X10'3 (4.5-11.0)
--- NOTE | 2018-11-15 06:42 | NUR ---
REPORT GIVEN TO RICARDO CLEMENTS.
[2018-11-15 06:45] LABS: ALANINE AMINOTRANSFERASE 23 U/L (12-78); ALBUMIN 2.9 G/DL (3.4-5.0); ALBUMIN/GLOBULIN RATIO 0.6 (1.1-1.5); ALKALINE PHOSPHATASE 48 IU/L (46-116); ANION GAP 10 (8-16); ASPARTATE AMINO TRANSFERASE 18 U/L (10-37); BILIRUBIN,TOTAL 0.2 MG/DL (0.1-1.0); BLOOD UREA NITROGEN 4 MG/DL (7-18); BUN/CREATININE RATIO 5.3 (6.6-38.0); CALCIUM 8.6 MG/DL (8.5-10.1); CHLORIDE 109 MMOL/L (99-107); CREATININE 0.76 MG/DL (0.40-0.90); GLUCOSE 129 MG/DL (70-104); MAGNESIUM 1.9 MG/DL (1.5-2.4); PHOSPHORUS 3.4 MG/DL (2.3-4.5); SODIUM 147 MMOL/L (135-145); TOTAL CARBON DIOXIDE 28.5 MMOL/L (24-32); TOTAL PROTEIN 7.5 G/DL (6.4-8.2); eGFR 73 ML/MIN
[2018-11-15] MEDS: ipratropium/albuterol 3ml nebule NEB SCH ×4 (07:10→19:50)
[2018-11-15] MEDS: K and/or MAG REPLACEMENT MC SCH (08:00)
[2018-11-15] MEDS: pantoprazole 40mg Tablet.DR PO SCH (08:27)
[2018-11-15] MEDS: amLODIPine 5mg tablet PO SCH (08:27)
[2018-11-15] MEDS: lactobacillus rhamnosus 10,000 MMU CELLS/CAPSULE PO SCH ×2 (08:27→20:56)
[2018-11-15] MEDS: HYDROcodone/acetaminophen 10/325mg tab PO PRN ×2 (08:27→21:06)
[2018-11-15] MEDS: lisinopril 20mg tablet PO SCH (08:27)
[2018-11-15] MEDS: atorvastatin 20mg tablet PO SCH (08:28)
[2018-11-15] MEDS: cefepime 2g/NS 100ml ADVANTAGE 100 ML IV SCH ×2 (08:28→20:56)
[2018-11-15] MEDS: celeCOXIB 100mg capsule PO SCH (08:28)
[2018-11-15] MEDS ORDERED: furosemide 40mg/4ml inj IV ONE (10:00)
[2018-11-15] MEDS: fluconazole 100mg tablet PO SCH (11:07)
[2018-11-15 18:00] VITALS: BP 115/52
[2018-11-15] MEDS: potassium Cl 20 mEq SR tablet PO SCH (18:20)
[2018-11-15 18:33] VITALS: BP 115/52
[2018-11-15] MEDS: furosemide 40mg/4ml inj IV SCH (20:56)
[2018-11-15] MEDS: sertraline 50mg tablet PO SCH (20:56)
[2018-11-15 22:00] VITALS: BP 143/74
[2018-11-16] MEDS: ipratropium/albuterol 3ml nebule NEB SCH ×6 (00:21→23:00)
[2018-11-16 06:00] VITALS: BP 135/67
--- NOTE | 2018-11-16 06:31 | NUR ---
REPORT GIVEN TO RICARDO ESQUIVEL.
[2018-11-16] MEDS: K and/or MAG REPLACEMENT MC SCH (06:44)
[2018-11-16] MEDS: atorvastatin 20mg tablet PO SCH (08:00)
[2018-11-16] MEDS: pantoprazole 40mg Tablet.DR PO SCH (08:34)
[2018-11-16] MEDS: celeCOXIB 100mg capsule PO SCH (08:35)
[2018-11-16] MEDS: lactobacillus rhamnosus 10,000 MMU CELLS/CAPSULE PO SCH ×2 (08:36→20:01)
[2018-11-16] MEDS: fluconazole 100mg tablet PO SCH (08:37)
[2018-11-16] MEDS: amLODIPine 5mg tablet PO SCH (08:41)
[2018-11-16] MEDS: potassium Cl 20 mEq SR tablet PO SCH ×2 (08:43→18:22)
[2018-11-16] MEDS: lisinopril 20mg tablet PO SCH (08:43)
[2018-11-16] MEDS: HYDROcodone/acetaminophen 5mg/325mg tablet PO PRN (08:45)
[2018-11-16] MEDS: cefepime 2g/NS 100ml ADVANTAGE 100 ML IV SCH ×2 (08:48→20:02)
[2018-11-16] MEDS: furosemide 40mg/4ml inj IV SCH ×2 (08:49→20:01)
[2018-11-16 10:00] VITALS: BP 151/79
[2018-11-16 18:00] VITALS: BP 133/60
--- NOTE | 2018-11-16 18:05 | NUR ---
report to Tamar SILVA
[2018-11-16] MEDS: sertraline 50mg tablet PO SCH (20:01)
[2018-11-16 22:00] VITALS: BP 125/74
[2018-11-16] MEDS: HYDROcodone/acetaminophen 10/325mg tab PO PRN (23:09)
[2018-11-17 06:00] VITALS: BP 121/62
--- NOTE | 2018-11-17 06:29 | NUR ---
Problems reprioritized. Patient report given, questions answered & plan of care reviewed with RICARDO ESQUIVEL.
[2018-11-17] MEDS: cefepime 2g/NS 100ml ADVANTAGE 100 ML IV SCH (07:37)
[2018-11-17] MEDS: fluconazole 100mg tablet PO SCH (07:37)
[2018-11-17] MEDS: amLODIPine 5mg tablet PO SCH (07:38)
[2018-11-17] MEDS: lactobacillus rhamnosus 10,000 MMU CELLS/CAPSULE PO SCH (07:38)
[2018-11-17] MEDS: furosemide 40mg/4ml inj IV SCH (07:38)
[2018-11-17] MEDS: celeCOXIB 100mg capsule PO SCH (07:38)
[2018-11-17] MEDS: lisinopril 20mg tablet PO SCH (07:38)
[2018-11-17] MEDS: pantoprazole 40mg Tablet.DR PO SCH (07:39)
[2018-11-17] MEDS: potassium Cl 20 mEq SR tablet PO SCH (07:50)
[2018-11-17] MEDS: atorvastatin 20mg tablet PO SCH (08:00)
[2018-11-17] MEDS: K and/or MAG REPLACEMENT MC SCH (08:00)
[2018-11-17] MEDS: ipratropium/albuterol 3ml nebule NEB SCH ×2 (08:06→11:42)
[2018-11-17 10:00] VITALS: BP 117/65
[2018-11-17] MEDS ORDERED: NYST1000 PO (10:26)
[2018-11-17] MEDS ORDERED: LEVO750T21 PO (10:26)
[2018-11-17] MEDS ORDERED: POTA20TA19 PO (10:28)
[2018-11-17] MEDS ORDERED: FURO-149 PO (10:28)
== END 2018-11-17 12:30 | disposition home health service (06) | DRG 190 ==
LOC: ER 12:09 → ORTHO 4S 19:23 → CMPBEDREQ 11-14 18:05
PROVIDERS: ADMIT Family Medicine; ATTEND Family Medicine
PROC: 0W993ZZ Drainage of Right Pleural Cavity, Percutaneous Approach (ICD-10-PCS; principal; 2018-11-11)
DX: J44.0 Chronic obstructive pulmonary disease with (acute) lower respiratory infection (principal); J18.9 Pneumonia, unspecified organism; I51.0 Cardiac septal defect, acquired; J91.8 Pleural effusion in other conditions classified elsewhere; N17.9 Acute kidney failure, unspecified; J96.11 Chronic respiratory failure with hypoxia; J81.1 Chronic pulmonary edema; K21.9 Gastro-esophageal reflux disease without esophagitis; K57.90 Diverticulosis of intestine, part unspecified, without perforation or abscess without bleeding; E78.5 Hyperlipidemia, unspecified; Z96.653 Presence of artificial knee joint, bilateral; I12.9 Hypertensive chronic kidney disease with stage 1 through stage 4 chronic kidney disease, or unspecified chronic kidney disease; G89.29 Other chronic pain; M54.9 Dorsalgia, unspecified; N18.9 Chronic kidney disease, unspecified; Z90.49 Acquired absence of other specified parts of digestive tract; Z90.710 Acquired absence of both cervix and uterus; Z99.81 Dependence on supplemental oxygen; Z88.5 Allergy status to narcotic agent; Z91.041 Radiographic dye allergy status; Z87.891 Personal history of nicotine dependence
CPT/HCPCS: 32555; 36415; 71045; 80053; 82945; 83605; 83615; 83735; 83880; 83986; 84100; 84145; 84157; 84484; 85025; 85610; 85730; 87040; 87070; 87081; 88108; 88305; 89051; 93005; 93306; 94640; 94760; 96365; 96366; 97161; 97530; 99285; G0378; J0456; J0692; J0696; J1450; J1885; J1940; J7030

== ENCOUNTER 2018-12-18 16:50 | Inpatient (IN) | payer MEDICARE, OTHER ==
[~2018-12-18] VITALS: Ht 160 cm; Wt 77.3 kg
[~2018-12-18 16:50] MED LIST changes: -BENZ-16 PO; +BENZ-49 PO; +FURO-149 PO; +MULT-933 PO; -POTA20PA40 PO; +POTA20TA19 PO
[2018-12-18] MEDS ORDERED: levoFLOXACIN-Levaquin 750MG/D5 150 ML IV ONE (17:00)
[2018-12-18 18:02] LABS: BASOPHILS % (AUTO) 0.4 % (0-1); EOSINOPHILS # (AUTO) 0.1 X10'3 (0-0.9); HEMATOCRIT 33.5 % (35.0-45.0); HEMOGLOBIN 11.3 g/dl (12.0-16.0); LYMPHOCYTES # (AUTO) 1.8 X10'3 (1.1-4.8); LYMPHOCYTES % (AUTO) 20.8 % (21-51); MEAN CORPUSCULAR HEMOGLOBIN 33.2 PG (27.0-31.0); MEAN CORPUSCULAR HGB CONC 33.8 g/dL (33.0-36.5); MEAN CORPUSCULAR VOLUME 98.4 FL (78-98); MEAN PLATELET VOLUME 8.6 FL (7.4-10.4); MONOCYTES # (AUTO) 0.7 X10'3 (0-0.9); MONOCYTES % (AUTO) 7.9 % (2-12); NEUTROPHILS # (AUTO) 6.1 X10'3 (1.8-7.7); NEUTROPHILS % (AUTO) 69.9 % (42-75); PLATELET COUNT 196 X10'3 (140-440); RED CELL DISTRIBUTION WIDTH 13.8 % (11.5-14.5); WHITE BLOOD COUNT 8.7 X10'3 (4.5-11.0)
[2018-12-18 18:15] LABS: PARTIAL THROMBOPLASTIN TIME 25 SECONDS (22-32)
[2018-12-18 18:17] LABS: ALANINE AMINOTRANSFERASE 17 U/L (12-78); ALBUMIN 3.2 G/DL (3.4-5.0); ALBUMIN/GLOBULIN RATIO 0.8 (1.1-1.5); ALKALINE PHOSPHATASE 52 IU/L (46-116); ANION GAP 6 (8-16); ASPARTATE AMINO TRANSFERASE 18 U/L (10-37); BILIRUBIN,TOTAL 0.3 MG/DL (0.1-1.0); BLOOD UREA NITROGEN 11 MG/DL (7-18); BUN/CREATININE RATIO 13.8 (6.6-38.0); CALCIUM 9.1 MG/DL (8.5-10.1); CHLORIDE 105 MMOL/L (99-107); GLUCOSE 154 MG/DL (70-104); POTASSIUM 3.9 MMOL/L (3.5-5.1); SODIUM 140 MMOL/L (135-145); TOTAL CARBON DIOXIDE 29.2 MMOL/L (24-32); TOTAL PROTEIN 7.4 G/DL (6.4-8.2); eGFR 68 ML/MIN
[2018-12-18 18:25] LABS: MAGNESIUM 1.8 MG/DL (1.5-2.4)
[2018-12-18] MEDS ORDERED: magnesium 4gm in 100ml NS 100 ML IV PRN (19:25)
[2018-12-18] MEDS ORDERED: potassium CL 10mEq/100ml bag 100 ML IV PRN ×2 (19:25)
[2018-12-18] MEDS ORDERED: magnesium Cl slow-release 64mg tablet PO PRN (19:25)
[2018-12-18] MEDS ORDERED: ondansetron/PF 4mg/2ml inj IV PRN (19:25)
[2018-12-18] MEDS ORDERED: morphine 2 MG/ML inj. syringe IV PRN (19:25)
[2018-12-18] MEDS ORDERED: magnesium hydroxide 30ml (MOM) UD suspension PO PRN (19:25)
[2018-12-18] MEDS ORDERED: potassium Cl 20 mEq SR tablet PO PRN ×2 (19:25)
[2018-12-18] MEDS ORDERED: magnesium 2GM in 50ml NS 50 ML IV PRN (19:25)
[2018-12-18] MEDS ORDERED: acetaminophen 325mg tablet PO PRN (19:25)
[2018-12-18] MEDS ORDERED: mag hydrox/Alum hydrox/simeth 30ml oral suspension PO PRN (19:25)
--- NOTE | 2018-12-18 21:20 | NUR ---
Received report from ER nurse Yumiko SILVA. Will assume patient care.
[2018-12-18] MEDS ORDERED: benzonatate 100mg capsule PO PRN (21:55)
[2018-12-18 22:00] VITALS: BP 116/59
[2018-12-18] MEDS ORDERED: HYDROcodone/acetaminophen 5mg/325mg tablet PO PRN (22:00)
[2018-12-18] MEDS ORDERED: ipratropium/albuterol 3ml nebule NEB PRN (22:00)
[2018-12-18] MEDS: morphine 2 MG/ML inj. syringe IV PRN (22:07)
[2018-12-18] MEDS: ipratropium/albuterol 3ml nebule NEB SCH (23:30)
[2018-12-19] VITALS: BP 121/65
[2018-12-19] MEDS: ipratropium/albuterol 3ml nebule NEB SCH ×6 (03:00→23:00)
[2018-12-19] MEDS: morphine 2 MG/ML inj. syringe IV PRN (03:27)
[2018-12-19 05:19] LABS: BASOPHILS % (AUTO) 0.2 % (0-1); EOSINOPHILS # (AUTO) 0.1 X10'3 (0-0.9); EOSINOPHILS % (AUTO) 0.9 % (0-6); HEMATOCRIT 30.1 % (35.0-45.0); HEMOGLOBIN 10.2 g/dl (12.0-16.0); LYMPHOCYTES # (AUTO) 1.7 X10'3 (1.1-4.8); LYMPHOCYTES % (AUTO) 23.5 % (21-51); MEAN CORPUSCULAR HEMOGLOBIN 33.5 PG (27.0-31.0); MEAN CORPUSCULAR HGB CONC 33.8 g/dL (33.0-36.5); MEAN CORPUSCULAR VOLUME 99.3 FL (78-98); MEAN PLATELET VOLUME 8.9 FL (7.4-10.4); MONOCYTES # (AUTO) 0.8 X10'3 (0-0.9); MONOCYTES % (AUTO) 11.5 % (2-12); NEUTROPHILS # (AUTO) 4.6 X10'3 (1.8-7.7); NEUTROPHILS % (AUTO) 63.9 % (42-75); PLATELET COUNT 160 X10'3 (140-440); RED BLOOD COUNT 3.03 X10'6 (4.20-5.60); WHITE BLOOD COUNT 7.1 X10'3 (4.5-11.0)
[2018-12-19 05:30] LABS: ALBUMIN 2.9 G/DL (3.4-5.0); ANION GAP 5 (8-16); BLOOD UREA NITROGEN 12 MG/DL (7-18); BUN/CREATININE RATIO 14.5 (6.6-38.0); CALCIUM 8.5 MG/DL (8.5-10.1); CHLORIDE 105 MMOL/L (99-107); CREATININE 0.83 MG/DL (0.40-0.90); GLUCOSE 137 MG/DL (70-104); MAGNESIUM 2.2 MG/DL (1.5-2.4); POTASSIUM 3.6 MMOL/L (3.5-5.1); SODIUM 141 MMOL/L (135-145); TOTAL CARBON DIOXIDE 30.6 MMOL/L (24-32); eGFR 65 ML/MIN
--- NOTE | 2018-12-19 06:49 | NUR ---
Patient in room [facility] 352. I have received report from Nidia SILVA and had the opportunity to ask questions and assume patient care.
[2018-12-19 08:00] VITALS: BP 127/65
[2018-12-19] MEDS: K and/or MAG REPLACEMENT MC SCH (08:00)
[2018-12-19] MEDS: budesonide 0.5mg/2ml UD nebule IH SCH (08:02)
[2018-12-19] MEDS: CefTRIAXone 2gm/D5W 50ml 50 ML IV SCH (08:58)
[2018-12-19] MEDS: HYDROcodone/acetaminophen 5mg/325mg tablet PO PRN ×2 (08:59→20:28)
[2018-12-19] MEDS: lactobacillus rhamnosus 10,000 MMU CELLS/CAPSULE PO SCH ×2 (08:59→20:19)
[2018-12-19] MEDS: enoxaparin 40mg/0.4ml syringe SQ SCH (09:00)
[2018-12-19] MEDS: pantoprazole 40mg Tablet.DR PO SCH (09:02)
[2018-12-19] MEDS ORDERED: FLU VACC QS 2019-20 (6 MOS UP) 60 MCG/0.5 ML VIAL IMVAC ONE (10:00)
[2018-12-19 11:00] VITALS: BP 113/72
[2018-12-19] MEDS: vancomycin/NS 1 GM ADD-VANTAGE 250 ML IV SCH ×2 (14:40→23:49)
--- NOTE | 2018-12-19 17:35 | NUR ---
reviewed student nurse charting
--- NOTE | 2018-12-19 18:14 | NUR ---
Patient in room [facility] 352. I have received report from Staci SILVA and had the opportunity to ask questions and assume patient care. Pt sitting up at bedside with 3 visitors. No signs of distress, will continue to monitor.
[2018-12-19 20:00] VITALS: BP 142/68
[2018-12-19] MEDS: sertraline 50mg tablet PO SCH (20:19)
[2018-12-19] MEDS: benzonatate 100mg capsule PO PRN (22:53)
[2018-12-19] MEDS ORDERED: vancomycin/NS 1 GM ADD-VANTAGE 250 ML IV SCH (23:00)
[2018-12-20 00:12] VITALS: BP 141/65
[2018-12-20] MEDS: ipratropium/albuterol 3ml nebule NEB SCH ×6 (03:00→23:53)
[2018-12-20 05:07] LABS: BASOPHILS % (AUTO) 0.4 % (0-1); EOSINOPHILS # (AUTO) 0.1 X10'3 (0-0.9); EOSINOPHILS % (AUTO) 1.6 % (0-6); HEMATOCRIT 29.6 % (35.0-45.0); LYMPHOCYTES # (AUTO) 1.3 X10'3 (1.1-4.8); LYMPHOCYTES % (AUTO) 19.8 % (21-51); MEAN CORPUSCULAR HEMOGLOBIN 33.9 PG (27.0-31.0); MEAN CORPUSCULAR VOLUME 99.8 FL (78-98); MEAN PLATELET VOLUME 9.1 FL (7.4-10.4); MONOCYTES # (AUTO) 0.7 X10'3 (0-0.9); MONOCYTES % (AUTO) 10.9 % (2-12); NEUTROPHILS # (AUTO) 4.4 X10'3 (1.8-7.7); NEUTROPHILS % (AUTO) 67.3 % (42-75); PLATELET COUNT 185 X10'3 (140-440); RED BLOOD COUNT 2.96 X10'6 (4.20-5.60); RED CELL DISTRIBUTION WIDTH 14.2 % (11.5-14.5); WHITE BLOOD COUNT 6.5 X10'3 (4.5-11.0)
[2018-12-20 05:08] LABS: PARTIAL THROMBOPLASTIN TIME 25 SECONDS (22-32)
[2018-12-20 05:43] LABS: ANION GAP 8 (8-16); BLOOD UREA NITROGEN 7 MG/DL (7-18); BUN/CREATININE RATIO 9.9 (6.6-38.0); CALCIUM 8.6 MG/DL (8.5-10.1); CHLORIDE 106 MMOL/L (99-107); CREATININE 0.71 MG/DL (0.40-0.90); GLUCOSE 129 MG/DL (70-104); MAGNESIUM 1.9 MG/DL (1.5-2.4); POTASSIUM 3.8 MMOL/L (3.5-5.1); SODIUM 143 MMOL/L (135-145); TOTAL CARBON DIOXIDE 28.9 MMOL/L (24-32); eGFR 78 ML/MIN
--- NOTE | 2018-12-20 06:24 | NUR ---
Problems reprioritized. Patient report given, questions answered & plan of care reviewed with Chary SILVA.
--- NOTE | 2018-12-20 06:59 | NUR ---
Pt. c/o some pleuritic pain. RT paged.
[2018-12-20] MEDS: enoxaparin 40mg/0.4ml syringe SQ SCH (07:00)
[2018-12-20] MEDS: budesonide 0.5mg/2ml UD nebule IH SCH (07:01)
[2018-12-20 07:05] VITALS: BP 130/68
[2018-12-20] MEDS: lactobacillus rhamnosus 10,000 MMU CELLS/CAPSULE PO SCH ×2 (07:25→20:16)
[2018-12-20] MEDS: pantoprazole 40mg Tablet.DR PO SCH (07:25)
[2018-12-20] MEDS: benzonatate 100mg capsule PO PRN ×2 (07:26→15:27)
[2018-12-20] MEDS: HYDROcodone/acetaminophen 5mg/325mg tablet PO PRN ×2 (07:27→15:29)
[2018-12-20] MEDS: K and/or MAG REPLACEMENT MC SCH (07:28)
[2018-12-20] MEDS: CefTRIAXone 2gm/D5W 50ml 50 ML IV SCH (07:28)
[2018-12-20 10:46] VITALS: BP 156/73
--- NOTE | 2018-12-20 11:04 | NUR ---
PAGER ID: [phone] MESSAGE: TESS ARNOLD 352 NO THORA COMPLETED R/T NOT ENOUGH FLUID IN LUNGS. LS- SOME FINE CRACKLES R MIDDLE LOBE. FRANCISCO [id number]
[2018-12-20 11:17] VITALS: BP 140/77
[2018-12-20] MEDS: vancomycin/NS 1 GM ADD-VANTAGE 250 ML IV SCH ×2 (12:00→23:02)
[2018-12-20] MEDS: morphine 2 MG/ML inj. syringe IV PRN (17:54)
--- NOTE | 2018-12-20 18:31 | NUR ---
Problems reprioritized. Patient report given, questions answered & plan of care reviewed with RICARDO Toro.
--- NOTE | 2018-12-20 19:04 | NUR ---
Patient in room [facility] 352. I have received report from RICARDO Diez and had the opportunity to ask questions and assume patient care. Addendum: 12/20/18 at 1906 by Muna Peoples RN Amended: Links added.
[2018-12-20 20:00] VITALS: BP 148/71
[2018-12-20] MEDS: sertraline 50mg tablet PO SCH (20:17)
[2018-12-20] MEDS ORDERED: VANCOMYCIN LEVEL IV ONE (22:30)
[2018-12-21] VITALS: BP 150/76
[2018-12-21] MEDS: HYDROcodone/acetaminophen 5mg/325mg tablet PO PRN (00:38)
[2018-12-21] MEDS: ipratropium/albuterol 3ml nebule NEB SCH ×2 (03:55→07:10)
[2018-12-21 05:04] LABS: BASOPHILS % (AUTO) 0.4 % (0-1); EOSINOPHILS # (AUTO) 0.1 X10'3 (0-0.9); EOSINOPHILS % (AUTO) 1.3 % (0-6); HEMATOCRIT 30.7 % (35.0-45.0); HEMOGLOBIN 10.3 g/dl (12.0-16.0); LYMPHOCYTES # (AUTO) 1.8 X10'3 (1.1-4.8); LYMPHOCYTES % (AUTO) 22.9 % (21-51); MEAN CORPUSCULAR HEMOGLOBIN 33.3 PG (27.0-31.0); MEAN CORPUSCULAR HGB CONC 33.5 g/dL (33.0-36.5); MEAN CORPUSCULAR VOLUME 99.3 FL (78-98); MEAN PLATELET VOLUME 8.7 FL (7.4-10.4); MONOCYTES # (AUTO) 0.7 X10'3 (0-0.9); MONOCYTES % (AUTO) 8.9 % (2-12); NEUTROPHILS # (AUTO) 5.2 X10'3 (1.8-7.7); NEUTROPHILS % (AUTO) 66.5 % (42-75); PLATELET COUNT 196 X10'3 (140-440); RED BLOOD COUNT 3.09 X10'6 (4.20-5.60); RED CELL DISTRIBUTION WIDTH 14.2 % (11.5-14.5); WHITE BLOOD COUNT 7.9 X10'3 (4.5-11.0)
[2018-12-21 05:16] LABS: ALBUMIN 3.2 G/DL (3.4-5.0); ANION GAP 6 (8-16); BLOOD UREA NITROGEN 6 MG/DL (7-18); CALCIUM 8.6 MG/DL (8.5-10.1); CHLORIDE 106 MMOL/L (99-107); CREATININE 0.75 MG/DL (0.40-0.90); GLUCOSE 135 MG/DL (70-104); MAGNESIUM 1.9 MG/DL (1.5-2.4); POTASSIUM 3.4 MMOL/L (3.5-5.1); SODIUM 142 MMOL/L (135-145); TOTAL CARBON DIOXIDE 30.1 MMOL/L (24-32); eGFR 74 ML/MIN
--- NOTE | 2018-12-21 06:24 | NUR ---
Problems reprioritized. Patient report given, questions answered & plan of care reviewed with RICARDO Odell. Addendum: 12/21/18 at 0625 by Muna Peoples RN Amended: Links added.
[2018-12-21 07:10] VITALS: BP 143/72
[2018-12-21] MEDS: budesonide 0.5mg/2ml UD nebule IH SCH (07:10)
[2018-12-21] MEDS: CefTRIAXone 2gm/D5W 50ml 50 ML IV SCH (08:00)
[2018-12-21] MEDS: K and/or MAG REPLACEMENT MC SCH (08:00)
[2018-12-21] MEDS ORDERED: LEVO750T21 PO (08:07)
[2018-12-21] MEDS: lactobacillus rhamnosus 10,000 MMU CELLS/CAPSULE PO SCH (08:30)
[2018-12-21] MEDS: pantoprazole 40mg Tablet.DR PO SCH (08:30)
[2018-12-21] MEDS: enoxaparin 40mg/0.4ml syringe SQ SCH (08:32)
--- NOTE | 2018-12-21 09:41 | NUR ---
Patient discharged home stable and appropriate with daughter. All belongings taken from room. IV removed. New prescription transmitted to preferred pharmacy. Discharge instructions given and reviewed with patient, all questions answered.
== END 2018-12-21 09:41 | disposition home or self-care (01) | DRG 178 ==
LOC: ER 16:50 → ED HOLD 19:32 → SUR 3N 21:51
PROVIDERS: ADMIT Hospitalist; ATTEND Internal Medicine
DX: J15.8 Pneumonia due to other specified bacteria (principal); J44.0 Chronic obstructive pulmonary disease with (acute) lower respiratory infection; J91.8 Pleural effusion in other conditions classified elsewhere; J96.11 Chronic respiratory failure with hypoxia; D64.9 Anemia, unspecified; F32.9 Major depressive disorder, single episode, unspecified; G89.29 Other chronic pain; I10 Essential (primary) hypertension; M54.9 Dorsalgia, unspecified; Z23 Encounter for immunization; Z88.6 Allergy status to analgesic agent; Z91.041 Radiographic dye allergy status; Z87.01 Personal history of pneumonia (recurrent); Z90.49 Acquired absence of other specified parts of digestive tract; Z99.81 Dependence on supplemental oxygen; Z79.899 Other long term (current) drug therapy
CPT/HCPCS: 36415; 71045; 71046; 71250; 76604; 80048; 80053; 80202; 83605; 83615; 83735; 83880; 84145; 84484; 85025; 85610; 85730; 87040; 87081; 93005; 94640; 94760; 96365; 97116; 97161; 97530; 99285; G0378; J0696; J1650; J1956; J2270; J3370; J7626; Q2037

== ENCOUNTER 2019-02-22 11:00 | Emergency (ER) | payer MEDICARE, OTHER ==
[~2019-02-22] VITALS: Ht 160 cm; Wt 77.3 kg
[~2019-02-22 11:00] MED LIST changes: -POTA20TA19 PO
[2019-02-22] MEDS ORDERED: ipratropium/albuterol 3ml nebule NEB ONE (12:10)
[2019-02-22] MEDS ORDERED: predniSONE 20 mg tablet PO ONE (12:10)
[2019-02-22 12:30] LABS: BASOPHILS % (AUTO) 0.3 % (0-1); EOSINOPHILS # (AUTO) 0.1 X10'3 (0-0.9); EOSINOPHILS % (AUTO) 1.1 % (0-6); HEMOGLOBIN 12.2 g/dl (12.0-16.0); LYMPHOCYTES # (AUTO) 1.9 X10'3 (1.1-4.8); LYMPHOCYTES % (AUTO) 22.5 % (21-51); MEAN CORPUSCULAR HGB CONC 33.1 g/dL (33.0-36.5); MEAN CORPUSCULAR VOLUME 96.7 FL (78-98); MEAN PLATELET VOLUME 9.1 FL (7.4-10.4); MONOCYTES # (AUTO) 0.7 X10'3 (0-0.9); MONOCYTES % (AUTO) 8.1 % (2-12); NEUTROPHILS # (AUTO) 5.6 X10'3 (1.8-7.7); PLATELET COUNT 261 X10'3 (140-440); RED BLOOD COUNT 3.82 X10'6 (4.20-5.60); RED CELL DISTRIBUTION WIDTH 14.3 % (11.5-14.5); WHITE BLOOD COUNT 8.3 X10'3 (4.5-11.0)
[2019-02-22 12:48] LABS: ALANINE AMINOTRANSFERASE 22 U/L (12-78); ALBUMIN 3.6 G/DL (3.4-5.0); ALBUMIN/GLOBULIN RATIO 0.8 (1.1-1.5); ALKALINE PHOSPHATASE 50 IU/L (46-116); ANION GAP 9 (8-16); ASPARTATE AMINO TRANSFERASE 25 U/L (10-37); BILIRUBIN,TOTAL 0.3 MG/DL (0.1-1.0); BLOOD UREA NITROGEN 19 MG/DL (7-18); BUN/CREATININE RATIO 20.4 (6.6-38.0); CALCIUM 9.5 MG/DL (8.5-10.1); CHLORIDE 103 MMOL/L (99-107); CREATININE 0.93 MG/DL (0.40-0.90); GLUCOSE 144 MG/DL (70-104); PARTIAL THROMBOPLASTIN TIME 26 SECONDS (22-32); POTASSIUM 3.8 MMOL/L (3.5-5.1); SODIUM 140 MMOL/L (135-145); TOTAL PROTEIN 8.3 G/DL (6.4-8.2); eGFR 57 ML/MIN
[2019-02-22] MEDS ORDERED: PRED20TA PO (12:52)
[2019-02-22] MEDS ORDERED: AMOX-580 PO (12:52)
--- NOTE | 2019-02-22 12:57 | NUR ---
PT TO CT VIA WHEELCHAIR WITH RICKI CARDIAC CATH TECHNICIAN PER ORDERS.
[2019-02-22 13:43] VITALS: BP 131/62
== END 2019-02-22 13:47 | disposition home or self-care (01) ==
LOC: ER 11:01
DX: J90 Pleural effusion, not elsewhere classified (principal); J18.9 Pneumonia, unspecified organism; R04.2 Hemoptysis; I10 Essential (primary) hypertension; J44.9 Chronic obstructive pulmonary disease, unspecified; G89.29 Other chronic pain; Z90.49 Acquired absence of other specified parts of digestive tract; Z98.890 Other specified postprocedural states; Z88.6 Allergy status to analgesic agent; Z88.5 Allergy status to narcotic agent; Z79.899 Other long term (current) drug therapy
CPT/HCPCS: 36415; 71045; 71250; 80053; 85025; 85610; 85730; 93005; 94640; 99284; J7512; 94760

== ENCOUNTER 2019-07-25 11:14 | Emergency (ER) | payer MEDICARE, BC ==
[~2019-07-25] VITALS: Ht 162.6 cm; Wt 70.0 kg
[~2019-07-25 11:14] MED LIST changes: +ALBU18HF2 IH; -ATOR40TA PO; -BENZ-49 PO; -FURO-149 PO; +LACT1CAP26 PO; +LISI-600 PO
[2019-07-25] MEDS ORDERED: nitroGLYCERIN 0.4mg SUBLingual tab SL PRN (11:40)
[2019-07-25] MEDS ORDERED: normal saline 1000ML IV soln IVB ONE (11:40)
[2019-07-25] MEDS ORDERED: morphine 4 MG/ML inj SYRINge IV ONE (11:40)
[2019-07-25 12:13] LABS: BASOPHILS # (AUTO) 0.1 X10'3 (0-0.2); BASOPHILS % (AUTO) 0.6 % (0-1); EOSINOPHILS % (AUTO) 0.3 % (0-6); HEMATOCRIT 36.6 % (35.0-45.0); HEMOGLOBIN 11.9 g/dl (12.0-16.0); LYMPHOCYTES % (AUTO) 13.1 % (21-51); MEAN CORPUSCULAR HEMOGLOBIN 31.9 PG (27.0-31.0); MEAN CORPUSCULAR HGB CONC 32.6 g/dL (33.0-36.5); MEAN CORPUSCULAR VOLUME 97.9 FL (78-98); MEAN PLATELET VOLUME 9.2 FL (7.4-10.4); MONOCYTES # (AUTO) 0.8 X10'3 (0-0.9); MONOCYTES % (AUTO) 9.6 % (2-12); NEUTROPHILS # (AUTO) 6.1 X10'3 (1.8-7.7); NEUTROPHILS % (AUTO) 76.4 % (42-75); PLATELET COUNT 220 X10'3 (140-440); RED BLOOD COUNT 3.73 X10'6 (4.20-5.60); RED CELL DISTRIBUTION WIDTH 14.3 % (11.5-14.5)
[2019-07-25 12:17] LABS: ANION GAP 6 (8-16); BLOOD UREA NITROGEN 16 MG/DL (7-18); BUN/CREATININE RATIO 16.8 (6.6-38.0); CALCIUM 9.6 MG/DL (8.5-10.1); CHLORIDE 103 MMOL/L (99-107); CREATININE 0.95 MG/DL (0.40-0.90); GLUCOSE 116 MG/DL (70-104); POTASSIUM 3.9 MMOL/L (3.5-5.1); SODIUM 142 MMOL/L (135-145); TOTAL CARBON DIOXIDE 33.4 MMOL/L (24-32); eGFR 56 ML/MIN
[2019-07-25 12:45] VITALS: BP 122/61
[2019-07-25] MEDS ORDERED: fentaNYL/PF 50MCG/1 ML 2ML syringe ONE (12:57)
[2019-07-25] MEDS ORDERED: LIDOcaine Viscous 15ml cup ONE (12:57)
[2019-07-25] MEDS ORDERED: MIDAZolam 5mg/5ml vial ONE (12:57)
[2019-07-25 14:10] VITALS: BP 133/73
[2019-07-25 14:20] VITALS: BP 136/67
[2019-07-25 14:30] VITALS: BP 137/60
[2019-07-25 14:40] VITALS: BP 136/73
[2019-07-25] MEDS ORDERED: OMEP40CA13 PO (15:19)
[2019-07-25 15:49] VITALS: BP 121/62
== END 2019-07-25 15:51 | disposition home or self-care (01) ==
LOC: ER 11:14
DX: T18.128A Food in esophagus causing other injury, initial encounter (principal); I10 Essential (primary) hypertension; J44.9 Chronic obstructive pulmonary disease, unspecified; G89.29 Other chronic pain; Z90.49 Acquired absence of other specified parts of digestive tract; Z98.890 Other specified postprocedural states; Z91.048 Other nonmedicinal substance allergy status; Z88.5 Allergy status to narcotic agent; Z79.2 Long term (current) use of antibiotics; Z79.899 Other long term (current) drug therapy; X58.XXXA Exposure to other specified factors, initial encounter; Y93.89 Activity, other specified; Y92.89 Other specified places as the place of occurrence of the external cause; Y99.8 Other external cause status
CPT/HCPCS: 36415; 43247; 71046; 80048; 85025; 96361; 96374; 99152; 99153; 99285; C1726; C1769; C1773; J2250; J2270; J3010; J7030; J7040; A4620